=== PATIENT | female | born 1955 | race Two or more races ===

== ENCOUNTER → 2024-02-02 | Outpatient (CLI) | payer OTHER, SELFPAY ==
--- NOTE | 2024-02-02 13:15 | XR_ITS ---
Examination: Screening digital mammography, bilateral Computer aided detection 3-D breast Tomosynthesis, bilateral Date and time of exam: February 02, 2024 at 1338 hours compared to mammograms dating to January 14, 2011 Indication: Screening Technique: Nonmagnified MLO, CC views of the breasts to been obtained, reconstructed from 3-D Tomosynthesis images. R2 computer aided detection program utilized for evaluation of suspicious masses and/or abnormal calcifications. 3-D Tomosynthesis images obtained. Findings: Scattered areas of fibroglandular density Breast biopsy marker retroareolar region left breast Benign calcifications No interval suspicious masses Impression: BI-RADS category II: Benign Findings. Recommend 1 year follow-up mammogram.
== END | disposition home or self-care (01) ==
PROVIDERS: PCP Nurse Practitioner Family; Referring Provider Nurse Practitioner Family; Visit Provider Nurse Practitioner Family
DX: Z12.31 Encounter for screening mammogram for malignant neoplasm of breast (principal); R92.323 Mammographic fibroglandular density, bilateral breasts; R92.1 Mammographic calcification found on diagnostic imaging of breast
CPT/HCPCS: 77063; 77067

== ENCOUNTER → 2024-02-04 | Outpatient (CLI) | payer OTHER, SELFPAY ==
--- NOTE | 2024-02-04 13:15 | XR_ITS ---
Examination: Lumbar spine 3 views Technique one AP lateral coned lateral lower lumbar spine 3 views Exam date and time: February 04, 2024 1325 hours INDICATIONS: Right-sided lower back pain beginning 2 months ago patient fell August 2023 with injury to the lower back FINDINGS: Severe osteopenia Thoracolumbar levoscoliosis 24 degrees 4 cm calcified likely area of uterine fibroid degeneration in the pelvis No acute lumbar fracture Grade 2 anterolisthesis L4 on L5 Diffuse lumbar disc narrowing, advanced L5-S1 and T12-L1 IMPRESSION: No acute lumbar fracture Advanced degenerative disc disease T12-L1, L5-S1
== END | disposition home or self-care (01) ==
PROVIDERS: PCP Nurse Practitioner Family; Referring Provider Nurse Practitioner Family; Visit Provider Nurse Practitioner Family
DX: M51.35 Other intervertebral disc degeneration, thoracolumbar region (principal); M51.379 Other intervertebral disc degeneration, lumbosacral region without mention of lumbar back pain or lower extremity pain
CPT/HCPCS: 72100

== ENCOUNTER 2024-11-07 09:27 | Outpatient (RCR) | payer OTHER, SELFPAY ==
--- NOTE | 2024-11-07 13:54 | PTNOTE_ITS ---
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 Pt currently does not have any pain or functional limitation. Pt prefers not to do any physical therapy at this time. Objective: Bilateral Ankle AROM: all motions are WNL Bilateral Ankle MMTs: grossly 4/5 Bilateral Hip MMTs: grossly 3+/5 Special Test: (+) Feiss Line Assessment: Pt demonstrate pes planus, however, functional strength and mobility. At this time Pt reports of minimal symptoms prefers no physical therapy intervention. Pt was evaluated and d/c from care; thank you for your referrals. [employer] Goals Eval and D/C Treatment Plan 1) Eval and D/C 2) Follow up with MD SEGURA Frequency and Duration: 1x Certification Dates: 11/07/24 to 02/06/25 Procedure Charges OP PT Eval Mod Complex 30 minutes: Yes
== END 2024-11-29 23:59 | disposition home or self-care (01) ==
LOC: CPTX 09:27
PROVIDERS: PCP Physician Assistant; Referring Provider Physician Assistant; Visit Provider Physician Assistant
DX: M21.42 Flat foot [pes planus] (acquired), left foot (principal); M21.41 Flat foot [pes planus] (acquired), right foot; M25.372 Other instability, left ankle; M25.371 Other instability, right ankle
CPT/HCPCS: 97162